=== PATIENT | male | born 1960 | race Caucasian/White ===

== ENCOUNTER 2018-12-02 05:24 | Day surgery (SDC) | payer OTHER ==
[~2018-12-02] VITALS: Ht 193 cm; Wt 149.3 kg
[~2018-12-02 05:24] MED LIST: ALLO300T PO; GEMF600T8 PO; HYDR25TA6 PO; INSU100V8 SQ; METF500T17 PO; METO-99 PO; MULT-658 PO; NAPR220C2 PO; VALS320T2 PO; VENL100T PO; ZEGRID PO; [UNRECOGNIZED DRUG - OTHER] PO
[2018-12-02] MEDS ORDERED: LACTATED RINGERS 1,000 ML IV SCH (06:12)
[2018-12-02 06:38] VITALS: BP 119/73
[2018-12-02] MEDS ORDERED: MIDAZOLAM 1 MG/ML, 2ML ONE (06:48)
[2018-12-02] MEDS ORDERED: FENTANYL PF 250 MCG/5ML ONE (06:48)
[2018-12-02] MEDS ORDERED: LIDOCAINE/PF 0.5% ,50ML ONE (06:53)
[2018-12-02] MEDS ORDERED: BUPIVACAINE/PF 0.25% ONE (06:53)
[2018-12-02] MEDS ORDERED: VANCOMYCIN 1,000 MG ONE (06:54)
[2018-12-02] MEDS ORDERED: THROMBIN 20,000 UNIT VIAL TP ONE (06:54)
[2018-12-02] MEDS ORDERED: EPINEPHRINE 1 MG/ML, 1ML ONE (06:54)
[2018-12-02] MEDS ORDERED: PROPOFOL 10 MG/ML, 20ML ONE (07:44)
[2018-12-02] MEDS ORDERED: SUCCINYLCHOLINE 20 MG/ML, 10ML ONE (07:44)
[2018-12-02] MEDS ORDERED: ROCURONIUM 10MG/ML,5ML ONE (07:44)
[2018-12-02] MEDS ORDERED: ONDANSETRON 2MG/ML, 2ML ONE (07:44)
[2018-12-02] MEDS ORDERED: CEFAZOLIN 1,000 MG ONE (07:44)
[2018-12-02] MEDS ORDERED: FENTANYL PF 100 MCG/2ML IV PRN (08:30)
[2018-12-02] MEDS ORDERED: KETOROLAC 30 MG/1 ML IV PRN (08:30)
[2018-12-02] MEDS ORDERED: HYDROmorphone 1 MG/ML, 1ML INJ IV PRN (08:30)
[2018-12-02] MEDS ORDERED: LABETALOL 5MG/ML, 20ML IV PRN (08:30)
[2018-12-02] MEDS ORDERED: OXYcodone 5 MG/5 ML ORAL.SOL UDC PO PRN (08:30)
[2018-12-02] MEDS ORDERED: MEPERIDINE/PF 25MG/0.5ML IVPush PRN (08:30)
[2018-12-02] MEDS ORDERED: ALBUTEROL SULFATE 2.5 MG/3 ML NPPB PRN (08:30)
[2018-12-02] MEDS ORDERED: hydrALAzine 20 MG/ML, 1ML IV PRN (08:30)
[2018-12-02] MEDS ORDERED: METOCLOPRAMIDE 5 MG/ML, 2ML IV PRN (08:30)
[2018-12-02] MEDS ORDERED: PROMETHAZINE 25 MG/ML, 1ML IV PRN (08:30)
[2018-12-02] MEDS ORDERED: ONDANSETRON 2MG/ML, 2ML IVPush PRN (08:30)
[2018-12-02] MEDS ORDERED: TOBRAMYCIN SULFATE 1.2 GM IMP ONE (08:33)
[2018-12-02] MEDS ORDERED: OXYcodone 5 MG/5 ML ORAL.SOL UDC ONE (10:46)
== END 2018-12-02 13:20 | disposition home or self-care (01) ==
LOC: OUT 05:24
PROVIDERS: ATTEND Orthopaedic Surgery Orthopaedic Surgery of the Spine
DX: M48.061 Spinal stenosis, lumbar region without neurogenic claudication (principal); M51.26 Other intervertebral disc displacement, lumbar region; E11.9 Type 2 diabetes mellitus without complications; I10 Essential (primary) hypertension; E78.00 Pure hypercholesterolemia, unspecified; G47.33 Obstructive sleep apnea (adult) (pediatric); Z79.4 Long term (current) use of insulin
CPT/HCPCS: 63030; 63035; 72100; 82962; J0171; J0330; J0690; J2001; J2250; J2405; J2704; J3010; J3260; J3370; J3490; J7120